=== PATIENT | female | born 1980 | race Caucasian/White ===

== ENCOUNTER → 2017-01-26 | Outpatient (REF) | payer MEDICAID, OTHER, SELFPAY ==
[~2017-01-26] MED LIST: /GLIP10TAB OR; /GUAIMAX PO; /LINE60TA OR; /LINE60TA PO; /MAGN40TA PO; /MOXI40TA OR; /PANT40TA PO; ACET50TA PO; ALB2.5NEB INH; ASPI81TA83 OR; BACT800T OR; BACT800T5 PO; BENA25TA4 PO; COLACE; COLACE PO; DRIS1CAP PO; FOLI1TAB86 PO; GEMF600T OR; GLUC850T OR; INSUH10VL SQ; INSULANT SC; LABE10TAB PO; LISI2.5T OR; MAGN500T2 PO; MAGO400T PO; MULTTAB4 PO; MUPI2OI TOP; NOVOLIN N SUBQ; OXYC-208 PO; PERC5TAB8 PO; PRIN10TA OR; PROZ20CA OR; PROZ20CA11 PO; REGULAR INSULIN; ULTR50TA PO; XANA0.25 OR; ZOCO20TA PO
[2017-01-26 17:03] LABS: ALBUMIN 3.5 GM/DL (3.2-5.2); ALBUMIN/GLOBULIN RATIO 1.06 (1.00-1.93); ALKALINE PHOSPHATASE 92 U/L (45-117); ALT/SGPT 20 U/L (12-78); ANION GAP 6 MEQ/L (8-16); AST/SGOT 8 U/L (15-37); BILIRUBIN,TOTAL 0.3 MG/DL (0.2-1.0); BLOOD UREA NITROGEN 14 MG/DL (7-18); CALCIUM LEVEL 7.9 MG/DL (8.5-10.1); CARBON DIOXIDE LEVEL 28 MEQ/L (21-32); CHLORIDE LEVEL 107 MEQ/L (98-107); CHOLESTEROL LEVEL 178 MG/DL (<200); CREATININE FOR GFR 0.58 MG/DL (0.55-1.02); GLOMERULAR FILTRATION RATE > 60.0 (>60); GLUCOSE, FASTING 165 MG/DL (70-105); POTASSIUM SERUM 4.2 MEQ/L (3.5-5.1); SODIUM LEVEL 141 MEQ/L (136-145); TOTAL PROTEIN 6.8 GM/DL (6.4-8.2); TRIGLYCERIDES LEVEL 157 MG/DL (<150)
== END ==
LOC: M SFHCCLAY 10:33
PROVIDERS: ATTEND Family Medicine
DX: E78.2 Mixed hyperlipidemia (principal); I10 Essential (primary) hypertension

== ENCOUNTER → 2017-02-13 | Outpatient (REF) | payer MEDICAID, OTHER, SELFPAY ==
[2017-02-14 12:39] LABS: MAGNESIUM LEVEL 1.9 MG/DL (1.8-2.4)
== END ==
LOC: M SFHCCLAY 16:24
PROVIDERS: ATTEND Family Medicine
DX: E11.9 Type 2 diabetes mellitus without complications (principal)

== ENCOUNTER → 2017-09-12 | Outpatient (REF) | payer OTHER ==
[2017-09-13 11:48] LABS: HEMATOCRIT 45.3 % (36.0-47.0); HEMOGLOBIN 15.4 g/dl (12.0-15.5); MEAN CORPUSCULAR HEMOGLOBIN 29.1 pg (27.0-33.0); MEAN CORPUSCULAR VOLUME 85.5 fl (80.0-96.0); PLATELET COUNT, AUTOMATED 330 10^3/uL (150-450); WHITE BLOOD COUNT 10.7 10^3/uL (4.0-10.0)
== END ==
LOC: M LABDRAWC 11:22
DX: N92.0 Excessive and frequent menstruation with regular cycle (principal)

== ENCOUNTER → 2017-09-20 | Outpatient (REF) | payer OTHER ==
[2017-09-20 17:20] LABS: ALBUMIN 3.8 GM/DL (3.2-5.2); ALBUMIN/GLOBULIN RATIO 1.15 (1.00-1.93); ALKALINE PHOSPHATASE 90 U/L (45-117); ALT/SGPT 22 U/L (12-78); ANION GAP 6 MEQ/L (8-16); AST/SGOT 10 U/L (7-37); BILIRUBIN,TOTAL 0.4 MG/DL (0.2-1.0); BLOOD UREA NITROGEN 18 MG/DL (7-18); CALCIUM LEVEL 8.5 MG/DL (8.5-10.1); CARBON DIOXIDE LEVEL 27 MEQ/L (21-32); CHLORIDE LEVEL 107 MEQ/L (98-107); CHOLESTEROL LEVEL 160 MG/DL (<200); CHOLESTEROL RISK RATIO 3.333 (<5); CREATININE FOR GFR 0.57 MG/DL (0.55-1.30); GLOMERULAR FILTRATION RATE > 60.0 (>60); GLUCOSE, FASTING 78 MG/DL (70-100); HDL CHOLESTEROL 48 MG/DL (>40); LDL CHOLESTEROL 96.4 MG/DL (<100); NON-HDL-C 112 MG/DL; POTASSIUM SERUM 4.2 MEQ/L (3.5-5.1); SODIUM LEVEL 140 MEQ/L (136-145); TOTAL PROTEIN 7.1 GM/DL (6.4-8.2); TRIGLYCERIDES LEVEL 78 MG/DL (<150)
[2017-09-20 18:51] LABS: ESTIMATED AVERAGE GLUCOSE 160 MG/DL (60-110); HEMOGLOBIN A1c 7.2 %
== END ==
LOC: M SFHCCLAY 09:59
DX: E11.9 Type 2 diabetes mellitus without complications (principal)

== ENCOUNTER → 2017-11-05 | Outpatient (REF) | payer OTHER ==
[2017-11-06 11:47] LABS: BASO % 0.3 % (0.0-1.0); HEMATOCRIT 40.1 % (36.0-47.0); HEMOGLOBIN 13.8 g/dl (12.0-15.5); IMMATURE GRANULOCYTE % 0.1 % (0-3.0); LYMPH # 1.9 10^3/uL (1.5-4.5); LYMPH % 28.4 % (24.0-44.0); MEAN CORPUSCULAR HEMOGLOBIN 28.8 pg (27.0-33.0); MEAN CORPUSCULAR HGB CONC 34.4 g/dl (32.0-36.5); MEAN CORPUSCULAR VOLUME 83.7 fl (80.0-96.0); MONO # 0.5 10^3/uL (0.0-0.8); MONO % 6.9 % (0.0-5.0); NEUTROPHILS # 4.3 10^3/uL (1.8-7.7); NEUTROPHILS % 64.3 % (36.0-66.0); PLATELET COUNT, AUTOMATED 265 10^3/uL (150-450); RED BLOOD COUNT 4.79 10^6/uL (4.00-5.40); WHITE BLOOD COUNT 6.7 10^3/uL (4.0-10.0)
[2017-11-06 11:58] LABS: ALBUMIN 4.1 GM/DL (3.2-5.2); ALBUMIN/GLOBULIN RATIO 1.21 (1.00-1.93); ALKALINE PHOSPHATASE 109 U/L (45-117); ALT/SGPT 18 U/L (12-78); ANION GAP 9 MEQ/L (8-16); AST/SGOT 7 U/L (7-37); BILIRUBIN,TOTAL 0.6 MG/DL (0.2-1.0); BLOOD UREA NITROGEN 14 MG/DL (7-18); CALCIUM LEVEL 8.8 MG/DL (8.5-10.1); CARBON DIOXIDE LEVEL 28 MEQ/L (21-32); CHLORIDE LEVEL 105 MEQ/L (98-107); CREATININE FOR GFR 0.68 MG/DL (0.55-1.30); GLOMERULAR FILTRATION RATE > 60.0 (>60); GLUCOSE, FASTING 120 MG/DL (70-100); POTASSIUM SERUM 3.6 MEQ/L (3.5-5.1); SODIUM LEVEL 142 MEQ/L (136-145); TOTAL PROTEIN 7.5 GM/DL (6.4-8.2)
== END ==
LOC: M SFHCCLAY 13:50
DX: E11.40 Type 2 diabetes mellitus with diabetic neuropathy, unspecified (principal)

== ENCOUNTER 2019-05-27 12:16 | Emergency (ER) | payer MEDICAID, OTHER ==
[~2019-05-27] VITALS: Ht 167.6 cm; Wt 72.7 kg
[~2019-05-27 12:16] MED LIST changes: -/LINE60TA OR; -/LINE60TA PO; -/MAGN40TA PO; -/MOXI40TA OR; -/PANT40TA PO; -ACET50TA PO; +AVEL1TAB2 OR; +MAGN400T15 PO; +MAPA500T17 PO; +MUPI1OIN2 TOP; -MUPI2OI TOP; +PROT1TAB2 PO; +ZYVO100T OR; +ZYVO100T PO
[2019-05-27 12:48] LABS: BASO % 0.5 % (0.0-1.0); HEMATOCRIT 38.9 % (36.0-47.0); HEMOGLOBIN 13.3 g/dl (12.0-15.5); LYMPH # 2.2 10^3/uL (1.5-5.0); LYMPH % 35.3 % (24.0-44.0); MEAN CORPUSCULAR HEMOGLOBIN 30.1 pg (27.0-33.0); MEAN CORPUSCULAR HGB CONC 34.2 g/dl (32.0-36.5); MONO # 0.6 10^3/uL (0.0-0.8); MONO % 9.2 % (0.0-5.0); NEUTROPHILS # 3.4 10^3/uL (1.5-8.5); NEUTROPHILS % 54.8 % (36.0-66.0); PLATELET COUNT, AUTOMATED 269 10^3/uL (150-450); RED BLOOD COUNT 4.42 10^6/uL (4.00-5.40); WHITE BLOOD COUNT 6.2 10^3/uL (4.0-10.0)
[2019-05-27] MEDS ORDERED: ATOR1TAB21 PO (13:11)
[2019-05-27] MEDS ORDERED: HYDR-3363 PO (13:11)
[2019-05-27] MEDS ORDERED: LISI20TA19 PO (13:11)
[2019-05-27] MEDS ORDERED: GLYB5TA PO (13:11)
[2019-05-27] MEDS ORDERED: VARE05TA PO (13:11)
[2019-05-27 13:18] LABS: AMPHETAMINES LEVEL URINE POSITIVE (NEGATIVE); BARBITURATES URINE NEGATIVE (NEGATIVE); BENZODIAZEPINES URINE NEGATIVE (NEGATIVE); CANNABINOIDS URINE NEGATIVE (NEGATIVE); COCAINE METABOLITE URINE NEGATIVE (NEGATIVE); METHADONE URINE NEGATIVE (NEGATIVE); OPIATES URINE NEGATIVE (NEGATIVE); PHENCYCLIDINE URINE NEGATIVE (NEGATIVE)
--- NOTE | 2019-05-27 13:21 | ED PDOC ---
Provider Note Consult Britt Beasley MRN: N/A Date of : N/A Date of Service: 05/27/2019 Chief Complaint Consultation for safety in the ER. History of Present Illness The patient is a 38-year-old woman who was previously not presented to our care, presents after a pickup order is called. She had reportedly come to her counseling appointment acting bizarre and paranoid. She had been brought in under the pickup order after eloping from the ER where she was brought initially for a rash. The patient was fairly upset and irritated and where she was newly coded when she presented her urine test was positive for amphetamines, however, after her intoxication resolved she became amenable and friendly. Her was present there where she was interviewed. The patient was met with. She described that she has a problem with methamphetamine use and had been using on the day in question becoming fairly bizarre and paranoid, worried and anxious. She had gone to a counselor. She did not know what to do and subsequently after being sent to the ER with a reported rash likely from her continued report of scratching, the patient eloped from the ER where a pickup order was called to bring her for evaluation. Her was additionally interviewed where he described that although his has some mild depression at times and what she sees counseling poor. She has never had a history of harming herself or harming others and had been acting similar as she does when she is intoxicated. Some of the [employer] workers are aware of her and he reportedly has a history of manufacturing methamphetamine. Review Of Systems Depression: The patient reports mild low mood at times, however, unclear if this is occurred during any sober. Anxiety: Unclear of any anxiety outside of intoxication. Mariam: The patient denies any episodes of euphoria/dysphoria associated with decreased need for sleep, hedonism, talkatively or impulsivity lasting longer than 5 days. Psychotic: The patient denies any experiences of auditory or visual hallucinations. They deny any episodes of paranoia or delusional thinking in the past Trauma: The patient denies any traumatic events associated with nightmares or intrusive thoughts. Borderline: Did not strained at this time. Past Psychiatric History The patient reports no history of psychiatric admissions, medication trials. Currently follows for counseling second appointment for [facility], has not seen a psychiatrist, on no current psychiatric meds. Reportedly had been tried on Prozac for PMDD many years ago. Family Psychiatric History The patient denies/is unaware any history of mental health history including addictions and suicide. Social History The patient lives with her . Currently has several children, for many years. She reports that she has had significant trouble with methamphetamine recently as well as tobacco use. She denies any history of opioid or cocaine use. She reports that she currently does not work. Medical History Patient has no significant past medical history. Allergies See below Mental Status Examination General: Well dressed with good hygiene Speech: Spontaneous and fluid Thought processes: Linear and logical MSK: Smooth and coordinated gait, no signs of tremors or involuntary orofacial movements Thought content: Future orientated Abstract reasoning, and computation: Intact Description of associations: Intact Description of abnormal or psychotic thoughts: Denies any suicidal or homicidal ideation. Denies any auditory or visual hallucinations. Does not appear to be responding to internal stimuli. Does not appear to be endorsing any bizarre or paranoid ideation. Judgment: fair Insight: fair Orientation: Alert and orientated 3 Cognition: Grossly normal Recent and remote memory: Intact Attention span and concentration: Intact Fund of knowledge: Adequate Mood: "okay" Affect: Euthymic with a full range Diagnoses Methamphetamine use disorder, severe. Tobacco use disorder, severe/ Assessment and Plan The patient is a 38-year-old woman with a history of methamphetamine use, presents after reportedly being referred from her [facility] counselor due to paranoia and deluded thoughts likely secondary in my clinical opinion to her methamphetamine. She subsequently resolves after short observation period in our unit which is consistent with a significant methamphetamine problem. The patient admits that she uses methamphetamine and that it becomes a problem for her. She at this time does not meet involuntary criteria. She has a normal mental status exam. Her confirms collateral information that she has no history of mental health problems significantly other than mild depression, has no history of admissions or suicide attempts and that she has not made any statements about harming herself and that other than her methamphetamine use that she has returned to her baseline. She declines voluntary admission and thus must be discharged in good rafat. Disposition Discharged to home. Recommendations for addiction clinic. Time Spent 30 minutes [id number]. Sunday TIGIST QUEEN DO May 27, 2019 13:21
[2019-05-27 13:30] LABS: ACETAMINOPHEN LEVEL < 2.0 UG/ML (10.0-30.0); ALT/SGPT 46 U/L (12-78); BILIRUBIN,DIRECT 0.2 MG/DL (0.0-0.2); BILIRUBIN,TOTAL 0.4 MG/DL (0.2-1.0); BLOOD UREA NITROGEN 23 MG/DL (7-18); CALCIUM LEVEL 9.4 MG/DL (8.5-10.1); CARBON DIOXIDE LEVEL 28 MEQ/L (21-32); CHLORIDE LEVEL 103 MEQ/L (98-107); CREATININE FOR GFR 0.77 MG/DL (0.55-1.30); ETHYL ALCOHOL (ETHANOL) < 0.003 % (0.000-0.010); GLOMERULAR FILTRATION RATE > 60.0 (>58); GLUCOSE, FASTING 147 MG/DL (70-100); POTASSIUM SERUM 3.8 MEQ/L (3.5-5.1); SALICYLATE LEVEL < 1.7 MG/DL (5.0-30.0); SODIUM LEVEL 137 MEQ/L (136-145); THYROID STIMULATING HORMONE 0.587 uIU/ML (0.358-3.740); TOTAL PROTEIN 7.6 GM/DL (6.4-8.2)
[2019-05-27 14:20] VITALS: BP 128/65
== END 2019-05-27 14:27 | disposition home or self-care (01) ==
LOC: M ED 12:16
DX: F15.10 Other stimulant abuse, uncomplicated (principal); E11.9 Type 2 diabetes mellitus without complications; Z87.442 Personal history of urinary calculi; F17.210 Nicotine dependence, cigarettes, uncomplicated; Z79.4 Long term (current) use of insulin; Z79.51 Long term (current) use of inhaled steroids; Z79.899 Other long term (current) drug therapy
CPT/HCPCS: 36415; 80048; 80076; 80307; 84443; 85025; 99283; G0480